=== PATIENT | male | born 2000 | race Caucasian/White ===

== ENCOUNTER 2020-12-23 23:17 | Emergency (ER) | payer OTHER ==
[~2020-12-23] VITALS: Ht 188 cm; Wt 91.6 kg
[2020-12-23 23:27] VITALS: BP 145/67
--- NOTE | 2020-12-23 23:35 | NUR ---
[facility]
--- NOTE | 2020-12-23 23:53 | NUR ---
PATIENT LEFT WITHOUT BEING SEEN BY DR. HOUSER. NO FURTHER CARE PROVIDED FOR PATIENT.
== END 2020-12-23 23:53 | disposition left against medical advice (07) ==
LOC: MED 23:17
DX: J34.89 Other specified disorders of nose and nasal sinuses (principal); Z53.21 Procedure and treatment not carried out due to patient leaving prior to being seen by health care provider